=== PATIENT | male | born 2000 | race Two or more races ===

== ENCOUNTER 2023-09-11 13:50 | Emergency (ER) | payer OTHER ==
[~2023-09-11] VITALS: Ht 180.3 cm; Wt 72.6 kg
[2023-09-11] MEDS ORDERED: IBUprofen 100 MG/5 ML-120ML ML PO STA (14:48)
[2023-09-11] MEDS ORDERED: IBUprofen 20 MG/ML BLIST.PACK (5ML) PO ONE (15:11)
[2023-09-11] MEDS ORDERED: KETOROLAC TROMETHAMINE 30 MG VIAL IM STA (16:46)
[2023-09-11] MEDS ORDERED: KETOROLAC TROMETHAMINE 30 MG VIAL ONE (16:57)
== END 2023-09-11 17:02 | disposition home or self-care (01) ==
LOC: ER 13:50
DX: R53.81 Other malaise (principal); J10.1 Influenza due to other identified influenza virus with other respiratory manifestations; Z20.822 Contact with and (suspected) exposure to COVID-19

== ENCOUNTER 2023-09-13 10:27 | Emergency (ER) | payer OTHER ==
[~2023-09-13] VITALS: Ht 180.3 cm; Wt 72.6 kg
[2023-09-13] MEDS ORDERED: ACETAMINOPHEN 500 MG GEL..CAP PO ONE (11:01)
[2023-09-13] MEDS ORDERED: 0.9 % SODIUM CHLORIDE 1,000 ML IV STA (11:24)
[2023-09-13] MEDS ORDERED: ONDANSETRON HCL 2 MG/ML VIAL IV STA (11:25)
[2023-09-13] MEDS ORDERED: FAMOTIDINE/PF 20 MG/2 ML VIAL IV PUSH STA (11:26)
[2023-09-13] MEDS ORDERED: HYOSCYAMINE SULFATE 0.125 MG TAB.SUBL SL ONE (11:30)
[2023-09-13 11:39] LABS: HEMATOCRIT 43.5 % (39.0-48.0); HEMOGLOBIN 15.1 g/dL (13-16.00); MEAN CELL VOLUME 90.5 fL (80.0-100.00); MEAN CORPUSCULAR HEMOGLOBIN 31.5 pg (27.00-32.0); MEAN CORPUSCULAR HGB CONC 34.8 g/dl (32.0-36.0); PLATELET COUNT 190 K/uL (150-450); RED BLOOD COUNT 4.81 M/uL (4.00-6.00); RED CELL DISTRIBUTION WIDTH 12.4 % (11.5-14.5)
[2023-09-13] MEDS ORDERED: ONDANSETRON HCL 2 MG/ML VIAL ONE (11:40)
[2023-09-13] MEDS ORDERED: HYOSCYAMINE SULFATE 0.125 MG TAB.SUBL ONE (11:40)
[2023-09-13] MEDS ORDERED: FAMOtidine 200mg/20ml VIAL ONE (11:41)
[2023-09-13 12:03] LABS: ALBUMIN 3.9 gm/dL (3.4-5.0); BILIRUBIN TOTAL 2.14 mg/dL (0.3-1.2); CALCIUM 9.2 mg/dL (8.5-10.1); CREATININE SERUM 0.95 mg/dL (0.70-1.30); GFR 100.08; GLOBULINA 4.3 G/DL (2.4-3.5); POTASSIUM 3.65 mEq/L (3.5-5.1); TOTAL PROTEIN 8.2 gm/dL (6.4-8.2)
[2023-09-13] MEDS ORDERED: ACETAMINOPHEN 500 MG GEL..CAP PO STA (12:12)
== END 2023-09-13 14:24 | disposition home or self-care (01) ==
LOC: ER 10:27
PROVIDERS: General Practice
DX: J10.1 Influenza due to other identified influenza virus with other respiratory manifestations (principal); B34.9 Viral infection, unspecified